=== PATIENT | female | born 1930 | race Caucasian/White ===

== ENCOUNTER → 2019-04-03 | Outpatient (CLI) | payer MEDICARE, OTHER, MEDICAID ==
--- NOTE | 2019-04-03 10:07 | Diagnostic Imaging Report ---
INDICATION: Right wrist pain Four views of the right wrist show no fracture, dislocation or other acute abnormalities. There is some joint space narrowing at the first carpometacarpal joint and some calcification in the triangular fibrocartilage consistent with degenerative change. IMPRESSION: Degenerative changes. No acute abnormality seen. Dictated by: Dictated on workstation # [id number]
== END ==
LOC: RAD FS 09:22
PROVIDERS: ATTEND Family Medicine
DX: M19.031 Primary osteoarthritis, right wrist (principal)
CPT/HCPCS: 73110

== ENCOUNTER 2019-09-13 18:26 | Inpatient (IN) | payer MEDICARE, MEDICAID ==
[~2019-09-13] VITALS: Ht 152.6 cm; Wt 58.2 kg
[2019-09-13 18:39] LABS: BASOPHILS # (AUTO) 0.1 10^3/uL (0.0-0.1); BASOPHILS % (AUTO) 1 % (0-10); EOSINOPHILS # (AUTO) 0.2 10^3/uL (0.0-0.3); EOSINOPHILS % (AUTO) 2 % (0-10); HEMATOCRIT 31 % (35-52); HEMOGLOBIN 8.8 G/DL (11.5-16.0); LYMPHOCYTES # (AUTO) 1.6 X 10^3 (1.0-4.0); LYMPHOCYTES % (AUTO) 20 % (12-44); MEAN CORPUSCULAR HEMOGLOBIN 22 PG (25-34); MEAN CORPUSCULAR HGB CONC 28 G/DL (32-36); MEAN CORPUSCULAR VOLUME 79 FL (80-99); MEAN PLATELET VOLUME 10.9 FL (7.4-10.4); MONOCYTES # (AUTO) 0.7 X 10^3 (0.0-1.0); MONOCYTES % (AUTO) 9 % (0-12); NEUTROPHILS # (AUTO) 5.3 X 10^3 (1.8-7.8); NEUTROPHILS % (AUTO) 67 % (42-75); PLATELET COUNT 300 10^3/uL (130-400); WHITE BLOOD COUNT 7.9 10^3/uL (4.3-11.0)
[2019-09-13 19:01] LABS: CLARITY,URINE CLOUDY; COLOR,URINE YELLOW
[2019-09-13 19:01] LABS: INR 1.2 (0.8-1.4); PROTHROMBIN TIME PATIENT 15.8 SEC (12.2-14.7)
[2019-09-13 19:02] LABS: BACTERIA,URINE LARGE /HPF; BILIRUBIN,URINE NEGATIVE (NEGATIVE); GLUCOSE, URINE (UA) NEGATIVE (NEGATIVE); KETONES,URINE NEGATIVE (NEGATIVE); LEUKOCYTE ESTERASE ,URINE 3+ (NEGATIVE); NITRITE,URINE NEGATIVE (NEGATIVE); PROTEIN,URINE NEGATIVE (NEGATIVE); WBC,URINE TNTC /HPF
[2019-09-13 19:04] LABS: BILIRUBIN,TOTAL 0.2 MG/DL (0.1-1.0); CALCIUM 9.5 MG/DL (8.5-10.1); CREATININE SERUM 1.06 MG/DL (0.60-1.30); POTASSIUM 4.2 MMOL/L (3.6-5.0)
[2019-09-13] MEDS ORDERED: NS IV 500 ML 500 ML IV STA (19:04)
[2019-09-13 19:05] LABS: ALBUMIN 3.3 GM/DL (3.2-4.5); TOTAL PROTEIN 6.3 GM/DL (6.4-8.2)
--- NOTE | 2019-09-13 19:09 | ED Syncope ---
General Chief Complaint: Dizziness/Syncope Stated Complaint: SYNCOPE Nursing Triage Note: Patient is a resident of [facility], per EMS and E staff, patient was sitting on the commode when she had a syncopal episode. EMS also reports blood pressures 70s/40s. Source of Information: Patient, EMS History of Present Illness Date Seen by Provider: Sep 13, 2019 Time Seen by Provider: 18:26 Initial Comments 89-year-old female presenting from [facility] by EMS after having a syncopal episode while on the commode. She does have a history of hypertension and heart failure as well as dementia. She takes several blood pressure medications and a diuretic. She denies having any pain or discomfort with urin ation but has dementia. She had not been complaining of anything to the alf staff for her to the family. Initially her blood pressure for the alf staff was in the 70s systolic range. She refused an IV stick by EMS and her blood pressure was over 100 systolic for them so they deferred an IV stick until she came to the emergency department. She was having some dry heaves and belching when she arrived in the emergency department. She denied any diarrhea and did not have any actual vomiting. She denied having any pain anywhere. Allergies and Home Medications Allergies Coded Allergies: Penicillins (Verified Allergy, Unknown, 09/13/19) cephalexin (Verified Allergy, Unknown, 09/13/19) procaine (Verified Allergy, Unknown, 09/13/19) Patient Home Medication List Home Medication List Reviewed: Yes Review of Systems ROS-Unable to Obtain: patient has dementia so she gave limited review of systems Constitutional: No chills, No fever EENTM: no symptoms reported Respiratory: no symptoms reported Cardiovascular: No chest pain Gastrointestinal: No abdominal pain, No nausea, No vomiting Genitourinary: No dysuria Musculoskeletal: no symptoms reported Skin: no symptoms reported Psychiatric/Neurological: Other (syncopal episode while on the commode at the alf) Past Vaykppq-Pbzhme-Gqobhk Hx Past Med/Social Hx: Reviewed Nursing Past Med/Soc Hx Patient Social History Recent Foreign Travel: No Contact w/Someone Who Travel: No Recent Infectious Disease Expo: No Physical Abuse: No Sexual Abuse: No Mistreated: No Fear: No Past Medical History Cardiac: Yes (heart failure) Hypertension Dementia Physical Exam Vital Signs Vital Signs - First Documented 09/13/19 18:30 Temp 36.5 Pulse 63 Resp 13 B/P (MAP) 110/45 (66) Pulse Ox 94 O2 Delivery Room Air Capillary Refill : Less Than 3 Seconds Height, Weight, BMI Height: '" Weight: lbs. oz. kg; 22.00 BMI Method: General Appearance: No Apparent Distress, WD/WN HEENT: No Moist Mucous Membranes (slightly dry mucous membranes) Neck: Non Tender, Supple Cardiovascular: Regular Rate, Rhythm, Normal Peripheral Pulses, Other (distant heart sounds) Respiratory: Chest Non Tender, Lungs Clear, Normal Breath Sounds, No Accessory Muscle Use, No Respiratory Distress Gastrointestinal: Normal Bowel Sounds, No Pulsatile Mass, Non Tender, Soft Extremities: Normal Capillary Refill, Non Tender Neurologic/Psychiatric: Alert; No Oriented x3 (oriented to self and location) Cranial Nerves: Normal Speech, PERRL, Hearing Deficit (L), Hearing Deficit (R) Skin: Normal Color, Warm/Dry Focused Exam Lactate Level 09/13/19 19:25: Lactic Acid Level 1.84 Lactic Acid Level Laboratory Tests Test 09/13/19 19:25 Lactic Acid Level 1.84 MMOL/L (0.50-2.00) Progress/Results/Core Measures Results/Orders Lab Results Laboratory Tests Test 09/13/19 18:30 09/13/19 18:48 09/13/19 19:25 Range/Units White Blood Count 7.9 4.3-11.0 10^3/uL Red Blood Count 3.93 L 4.35-5.85 10^6/uL Hemoglobin 8.8 L 11.5-16.0 G/DL Hematocrit 31 L 35-52 % Mean Corpuscular Volume 79 L 80-99 FL Mean Corpuscular Hemoglobin 22 L 25-34 PG Mean Corpuscular Hemoglobin Concent 28 L 32-36 G/DL Red Cell Distribution Width 18.0 H 10.0-14.5 % Platelet Count 300 130-400 10^3/uL Mean Platelet Volume 10.9 H 7.4-10.4 FL Neutrophils (%) (Auto) 67 42-75 % Lymphocytes (%) (Auto) 20 12-44 % Monocytes (%) (Auto) 9 0-12 % Eosinophils (%) (Auto) 2 0-10 % Basophils (%) (Auto) 1 0-10 % Neutrophils # (Auto) 5.3 1.8-7.8 X 10^3 Lymphocytes # (Auto) 1.6 1.0-4.0 X 10^3 Monocytes # (Auto) 0.7 0.0-1.0 X 10^3 Eosinophils # (Auto) 0.2 0.0-0.3 10^3/uL Basophils # (Auto) 0.1 0.0-0.1 10^3/uL Prothrombin Time 15.8 H 12.2-14.7 SEC INR Comment 1.2 0.8-1.4 Activated Partial Thromboplast Time 33 24-35 SEC Sodium Level 141 135-145 MMOL/L Potassium Level 4.2 3.6-5.0 MMOL/L Chloride Level 106 98-107 MMOL/L Carbon Dioxide Level 25 21-32 MMOL/L Anion Gap 10 5-14 MMOL/L Blood Urea Nitrogen 17 7-18 MG/DL Creatinine 1.06 0.60-1.30 MG/DL Estimat Glomerular Filtration Rate 49 BUN/Creatinine Ratio 16 Glucose Level 139 H 70-105 MG/DL Calcium Level 9.5 8.5-10.1 MG/DL Corrected Calcium 10.1 8.5-10.1 MG/DL Magnesium Level 2.0 1.6-2.4 MG/DL Total Bilirubin 0.2 0.1-1.0 MG/DL Aspartate Amino Transf (AST/SGOT) 12 5-34 U/L Alanine Aminotransferase (ALT/SGPT) 5 0-55 U/L Alkaline Phosphatase 65 40-136 U/L Troponin I < 0.30 <0.30 NG/ML Pro-B-Type Natriuretic Peptide 1818.0 H <75.0 PG/ML Total Protein 6.3 L 6.4-8.2 GM/DL Albumin 3.3 3.2-4.5 GM/DL Urine Color YELLOW Urine Clarity CLOUDY Urine pH 6.0 5-9 Urine Specific [place] 1.020 1.016-1.022 Urine Protein NEGATIVE NEGATIVE Urine Glucose (UA) NEGATIVE NEGATIVE Urine Ketones NEGATIVE NEGATIVE Urine Nitrite NEGATIVE NEGATIVE Urine Bilirubin NEGATIVE NEGATIVE Urine Urobilinogen 0.2 < = 1.0 MG/DL Urine Leukocyte Esterase 3+ H NEGATIVE Urine RBC (Auto) 1+ H NEGATIVE Urine RBC 5-10 H /HPF Urine WBC TNTC H /HPF Urine Squamous Epithelial Cells 2-5 /HPF Urine Crystals NONE /LPF Urine Calcium Oxalate Crystals /LPF Urine Bacteria LARGE H /HPF Urine Casts NONE /LPF Urine Mucus NEGATIVE /LPF Urine Culture Indicated YES Lactic Acid Level 1.84 0.50-2.00 MMOL/L My Orders Orders - SHIVA ACEVEDO MD Cbc With Automated Diff (09/13/19 18:31) Magnesium (09/13/19 18:31) Chest 1 View Ap/Pa Only (09/13/19 18:31) Ekg Tracing (09/13/19 18:31) Comprehensive Metabolic Panel (09/13/19 18:31) Protime With Inr (09/13/19 18:31) Partial Thromboplastin Time (09/13/19 18:31) O2 (09/13/19 18:31) Monitor-Rhythm Ecg Trace Only (09/13/19 18:31) Ed Iv/Invasive Line Start (09/13/19 18:31) Troponin I Fs (09/13/19 18:31) Probnp Fs (09/13/19 18:31) Ua Culture If Indicated (09/13/19 18:32) Straight Cath For Spec.-Adult (09/13/19 18:34) Urine Culture (09/13/19 18:48) Ns Iv 500 Ml (Sodium Chloride 0.9%) (09/13/19 19:04) Ciprofloxacin Iv 400mg/200ml (Cipro Iv S (09/13/19 19:15) Blood Culture (09/13/19 19:21) Lactic Acid Analyzer (09/13/19 19:21) Medications Given in ED Current Medications Medications Dose Ordered Sig/Yossi Route Start Time Stop Time Status Last Admin Dose Admin Ciprofloxacin/ Dextrose 200 ml @ 200 mls/hr ONCE ONCE IV 09/13/19 19:15 09/13/19 20:14 DC 09/13/19 19:19 200 MLS/HR Vital Signs/I&O 09/13/19 18:30 Temp 36.5 Pulse 63 Resp 13 B/P (MAP) 110/45 (66) Pulse Ox 94 O2 Delivery Room Air Blood Pressure Mean: 66 POS Progress Progress Note #1: Progress Note Obtain basic labs as well as electrocardiogram and chest x-ray. Use a straight catheter to get a good urine specimen to check for a UTI and a obtain a evaluation of her hydration status. Give a 500 ML normal saline bolus to help with her hypotension. Progress Note #2: Progress Note No acute ST elevation on her electrocardiogram. She has a left bundle-branch block but no prior tracing for comparison. Her chest x-ray does not show any acute findings. Her urinalysis does show signs of an infection with packed bacteria and white blood cells. There was some blood but this was also from a catheter specimen. Her blood pressures have continued to run low and she is fluctuated from 85-95 for her systolic pressures. She is continued to remain awake and alert and interactive with family and staff during this entire time. Her CBC shows no elevation of her white blood cell count but she does have anemia with a hemoglobin of 8.8 which the family states she does have chronic anemia however they could not state what her hemoglobin usually runs. With the hypotension and findings of UTI will add on blood cultures and lactic acid to ensure that she is not septic. Provided this looks okay will start ciprofloxacin since she is allergic to penicillin and cephalosporins. Progress Note #3: Progress Note Lactic acid was 1.8 so she does not appear to be septic. Her blood pressure was responding to the IV fluid bolus. Discussed with Dr. Kaplan who is on-call for the [facility] clinic as the patient follows with Dr. Humphries and she accepted the patient for admission. She did request a consult from cardiology with Dr. Solitario. Continue the IV fluids at a maintenance rate and admit the patient to telemetry. She is a DO NOT RESUSCITATE according to the daughter. Initial ECG Impression Date: Sep 13, 2019 Initial ECG Impression Time: 18:58 Initial ECG Rate: 59 Initial ECG Rhythm: Normal Sinus Initial ECG Comparisson: No Previous ECG Available Comment Sinus rhythm with rate of 59 bpm. AK interval of 153 ms. QT interval of 381 ms and QTc interval of 378 ms. LBBB present. No acute ST elevation. No prior tracing available for comparison. Diagnostic Imaging Diagonstic Imaging: Xray Plain Films/CT/US/NM/MRI: chest Comments NAME: JOSEPH DENG [facility] REC#: [id number] PT STATUS: REG ER : 1930 PHYSICIAN: SHIVA ACEVEDO MD ADMIT DATE: 09/13/19/ER FS Signed POSDate of Exam:09/13/19 CHEST 1 VIEW AP/PA ONLY INDICATION: Syncope Portable chest 7:08 PM There is a hiatal hernia. There are postoperative changes from median sternotomy. Heart size and pulmonary vascularity are normal. Lungs are clear. There are no effusions or pneumothoraces. IMPRESSION: No acute abnormalities in the chest Dictated by: Dictated on workstation # [id number] Dict: 09/13/191911 Trans: 09/13/191920 [facility] [id number] Interpreted by: FLORENCIA CARPENTER MD Electronically signed by: FLORENCIA CARPENTER MD 09/13/191920 Departure Communication (Admissions) Time/Spoke to Admitting Phy: 19:[address] Kaplan who is on for [facility] since the patient follows with Dr. Humphries. She accepted the patient for admission and did request to have her as an inpatient and consult the cardiology services with Dr. Solitario due to her age and syncopal episode with hypotension Impression Primary Impression: Syncope Qualified Codes: R55 - Syncope and collapse Additional Impressions: Cystitis with hematuria Hypotension Qualified Codes: I95.1 - Orthostatic hypotension Anemia Qualified Codes: D64.9 - Anemia, unspecified Disposition: 09 ADMITTED INPATIENT Condition: Stable Admissions Decision to Admit Reason: Admit from ER (General) Decision to Admit/Date: Sep 13, 2019 Time/Decision to Admit Time: 19:49 SHIVA ACEVEDO MD Sep 13, 2019 19:09 POS
--- NOTE | 2019-09-13 19:14 | Diagnostic Imaging Report ---
INDICATION: Syncope Portable chest 7:08 PM There is a hiatal hernia. There are postoperative changes from median sternotomy. Heart size and pulmonary vascularity are normal. Lungs are clear. There are no effusions or pneumothoraces. IMPRESSION: No acute abnormalities in the chest Dictated by: Dictated on workstation # [id number]
[2019-09-13] MEDS ORDERED: CIPROFLOXACIN IV 400MG/200ML 200 ML IV ONE (19:15)
--- NOTE | 2019-09-13 20:00 | NUR ---
This RN contacted warehouse logistics coordinator for a medsur bed.
--- NOTE | 2019-09-13 20:19 | NUR ---
Called dispatch for EMS transport to [facility].
[2019-09-13 21:37] VITALS: BP 88/49
[2019-09-13] MEDS ORDERED: ACETAMINOPHEN 325 MG TABLET PO PRN (22:00)
[2019-09-13] MEDS ORDERED: NS IV 1000 ML 1,000 ML IV SCH (22:00)
[2019-09-13] MEDS ORDERED: ENOXAPARIN 40 MG/0.4 ML (LOVENOX) SYR SC SCH (22:15)
[2019-09-13] MEDS ORDERED: ACETAMINOPHEN 500 MG TAB (TYLENOL) PO PRN (22:15)
[2019-09-13] MEDS ORDERED: HYDROcodone/APAP 5 MG/325 MG (LORTAB) TAB PO PRN (22:15)
[2019-09-13] MEDS ORDERED: CALCIUM CARBONATE 500 MG (TUMS) TAB.CHEW PO PRN (22:15)
[2019-09-13] MEDS ORDERED: diphenhydrAMINE 25 MG TAB (BENADRYL) PO PRN (22:15)
[2019-09-13] MEDS ORDERED: MELATONIN 3 MG TABLET PO PRN (22:15)
[2019-09-13] MEDS ORDERED: ALPRAZolam 0.25 MG (XANAX) TAB PO PRN (22:15)
[2019-09-13] MEDS ORDERED: ONDANSETRON 4 MG (ZOFRAN) ORAL DISSOLVE TAB PO PRN (22:15)
[2019-09-13] MEDS ORDERED: guaiFENesin/CODEINE (ROBITUSSIN AC) 10ML UDC PO PRN (22:15)
[2019-09-13] MEDS ORDERED: LOPERAMIDE 2 MG (IMODIUM) TABLET PO PRN (22:15)
[2019-09-13] MEDS ORDERED: DOCUSATE SODIUM 100 MG (COLACE) CAP PO PRN (22:15)
[2019-09-13] MEDS ORDERED: ONDANSETRON 4 MG/2 ML (SDV) Z0FRAN IVP PRN (22:15)
[2019-09-13 23:02] LABS: BASOPHILS % (AUTO) 0 % (0-10); EOSINOPHILS % (AUTO) 1 % (0-10); HEMATOCRIT 29 % (35-52); HEMOGLOBIN 8.4 G/DL (11.5-16.0); LYMPHOCYTES # (AUTO) 0.9 X 10^3 (1.0-4.0); LYMPHOCYTES % (AUTO) 13 % (12-44); MEAN CORPUSCULAR HEMOGLOBIN 23 PG (25-34); MEAN CORPUSCULAR HGB CONC 29 G/DL (32-36); MEAN CORPUSCULAR VOLUME 78 FL (80-99); MONOCYTES # (AUTO) 0.4 X 10^3 (0.0-1.0); MONOCYTES % (AUTO) 5 % (0-12); NEUTROPHILS # (AUTO) 5.9 X 10^3 (1.8-7.8); NEUTROPHILS % (AUTO) 82 % (42-75); PLATELET COUNT 263 10^3/uL (130-400); RED CELL DISTRIBUTION WIDTH 18.2 % (10.0-14.5); WHITE BLOOD COUNT 7.3 10^3/uL (4.3-11.0)
[2019-09-13 23:26] LABS: ALANINE AMINOTRANSFERASE < 6 U/L (0-55); ALBUMIN 3.2 GM/DL (3.2-4.5); ALKALINE PHOSPHATASE 60 U/L (40-136); BILIRUBIN,TOTAL 0.2 MG/DL (0.1-1.0); BUN/CREATININE RATIO 16; CALCIUM 9.1 MG/DL (8.5-10.1); CARBON DIOXIDE 23 MMOL/L (21-32); CHLORIDE 107 MMOL/L (98-107); CREATININE SERUM 0.99 MG/DL (0.60-1.30); GFR ESTIMATED 53; GLUCOSE 112 MG/DL (70-105); POTASSIUM 4.1 MMOL/L (3.6-5.0); SODIUM 139 MMOL/L (135-145); TOTAL PROTEIN 5.8 GM/DL (6.4-8.2)
[2019-09-14 00:25] VITALS: BP 101/53
[2019-09-14 04:00] VITALS: BP 98/51
[2019-09-14] MEDS ORDERED: CIPROFLOXACIN 400 MG/D5W 200 ML (PRE-MIX) IV SCH (07:00)
[2019-09-14 08:00] VITALS: BP 101/57
[2019-09-14] MEDS ORDERED: MEMA10TA57 PO (08:42)
[2019-09-14] MEDS ORDERED: NITR0.4T39 SL (08:43)
[2019-09-14] MEDS ORDERED: POLY238P32 PO (08:43)
[2019-09-14] MEDS ORDERED: HYDR-3812 PO ×2 (08:43)
[2019-09-14] MEDS ORDERED: CITA20TA9 PO (08:43)
[2019-09-14] MEDS ORDERED: LISI2.5T PO (08:43)
[2019-09-14] MEDS ORDERED: LORA10TA76 PO (08:43)
[2019-09-14] MEDS ORDERED: APIX5TAB PO (08:43)
[2019-09-14] MEDS ORDERED: OMG1KC PO (08:43)
[2019-09-14] MEDS ORDERED: FURO40TA4 PO (08:43)
[2019-09-14] MEDS ORDERED: OMEP40CA27 PO (08:43)
[2019-09-14] MEDS ORDERED: MENT71OI TOP (08:43)
[2019-09-14] MEDS ORDERED: CARV3.122 PO (08:43)
[2019-09-14] MEDS ORDERED: DONE10TA41 PO (08:43)
[2019-09-14] MEDS ORDERED: BENZ100C18 PO (08:43)
[2019-09-14] MEDS ORDERED: POTA20TA15 PO (08:43)
[2019-09-14] MEDS ORDERED: GLUC-113 PO (08:43)
[2019-09-14] MEDS ORDERED: TIZA2TAB4 PO (08:43)
[2019-09-14] MEDS ORDERED: ASCO500T6 PO (08:45)
--- NOTE | 2019-09-14 08:45 | NUR ---
UPDATED MED REC WITH MEDICATION PHARMACY ORDERS FROM [facility].
[2019-09-14] MEDS ORDERED: CIPROFLOXACIN IV 400MG/200ML 200 ML IV SCH (09:00)
[2019-09-14] MEDS ORDERED: SENNA W/DOCUSATE (SENOKOT S) TABLET PO SCH (09:00)
--- NOTE | 2019-09-14 10:51 | Consultation-Cardiology ---
HPI-Cardiology Cardiology Consultation Date of Consultation 09/14/19 Date of Admission Time Seen by Provider: 10:46 Indication: syncope HPI 89-year-old lady with extensive cardiac history, patient is confused and unable to provide any history, history was obtained by reviewing her record and with interviewing her daughter. It was reported that patient passed out on the commode at the shelter, sent to the emergency room and admitted. Unable to provide any history, reporting history of coronary artery disease and CABG and questionable history of heart failure. Currently laying down comfortably, had multiple aches and pain. No chest pain. No palpitation, no shortness of breath, no edema Home Medications & Allergies Allergies: Coded Allergies: Penicillins (Verified Allergy, Unknown, 09/13/19) cephalexin (Verified Allergy, Unknown, 09/13/19) procaine (Verified Allergy, Unknown, 09/13/19) Home Medication List Reviewed: Yes JAI-Mzrqrb-Rjyuxp Hx Patient Social History Marital Status: Employed/Student: retired Alcohol Use: Denies Use Recreational Drug Use: No Smoking Status: Never a Smoker 2nd Hand Smoke Exposure: No Recent Foreign Travel: No Recent Infectious Disease Expo: No Recent Hopitalizations: No Immunizations Up To Date Date of Pneumonia Vaccine: Sep 13, 2018 Past Medical History discussed below Family Medical History Family Medical Hx noncontributory to her current condition Review of Systems-General Review of Systems Constitutional: No chills, No fever; malaise, weakness EENTM: see HPI, no symptoms reported Respiratory: see HPI; No cough; dyspnea on exertion; No hemoptysis, No orthopnea, No phlegm, No short of breath, No stridor, No wheezing, No other Cardiovascular: see HPI; No chest pain; syncope Gastrointestinal: no symptoms reported, see HPI; No abdominal pain, No nausea, No vomiting Genitourinary: no symptoms reported, see HPI; No dysuria Musculoskeletal: see HPI, back pain, joint pain, muscle stiffness, muscle weakness Skin: no symptoms reported, see HPI Psychiatric/Neurological: See HPI, Other (syncopal episode while on the commode at the shelter) Reviewed Test Results Reviewed Test Results Lab Laboratory Tests Test 09/13/19 18:30 09/13/19 18:48 09/13/19 19:25 09/13/19 22:50 Range/Units White Blood Count 7.9 7.3 4.3-11.0 10^3/uL Red Blood Count 3.93 L 3.70 L 4.35-5.85 10^6/uL Hemoglobin 8.8 L 8.4 L 11.5-16.0 G/DL Hematocrit 31 L 29 L 35-52 % Mean Corpuscular Volume 79 L 78 L 80-99 FL Mean Corpuscular Hemoglobin 22 L 23 L 25-34 PG Mean Corpuscular Hemoglobin Concent 28 L 29 L 32-36 G/DL Red Cell Distribution Width 18.0 H 18.2 H 10.0-14.5 % Platelet Count 300 263 130-400 10^3/uL Mean Platelet Volume 10.9 H 11.0 H 7.4-10.4 FL Neutrophils (%) (Auto) 67 82 H 42-75 % Lymphocytes (%) (Auto) 20 13 12-44 % Monocytes (%) (Auto) 9 5 0-12 % Eosinophils (%) (Auto) 2 1 0-10 % Basophils (%) (Auto) 1 0 0-10 % Neutrophils # (Auto) 5.3 5.9 1.8-7.8 X 10^3 Lymphocytes # (Auto) 1.6 0.9 L 1.0-4.0 X 10^3 Monocytes # (Auto) 0.7 0.4 0.0-1.0 X 10^3 Eosinophils # (Auto) 0.2 0.0 0.0-0.3 10^3/uL Basophils # (Auto) 0.1 0.0 0.0-0.1 10^3/uL Prothrombin Time 15.8 H 12.2-14.7 SEC INR Comment 1.2 0.8-1.4 Activated Partial Thromboplast Time 33 24-35 SEC Sodium Level 141 139 135-145 MMOL/L Potassium Level 4.2 4.1 3.6-5.0 MMOL/L Chloride Level 106 107 98-107 MMOL/L Carbon Dioxide Level 25 23 21-32 MMOL/L Anion Gap 10 9 5-14 MMOL/L Blood Urea Nitrogen 17 16 7-18 MG/DL Creatinine 1.06 0.99 0.60-1.30 MG/DL Estimat Glomerular Filtration Rate 49 53 BUN/Creatinine Ratio 16 16 Glucose Level 139 H 112 H 70-105 MG/DL Calcium Level 9.5 9.1 8.5-10.1 MG/DL Corrected Calcium 10.1 9.7 8.5-10.1 MG/DL Magnesium Level 2.0 1.6-2.4 MG/DL Total Bilirubin 0.2 0.2 0.1-1.0 MG/DL Aspartate Amino Transf (AST/SGOT) 12 11 5-34 U/L Alanine Aminotransferase (ALT/SGPT) 5 < 6 0-55 U/L Alkaline Phosphatase 65 60 40-136 U/L Troponin I < 0.30 <0.30 NG/ML Pro-B-Type Natriuretic Peptide 1818.0 H <75.0 PG/ML Total Protein 6.3 L 5.8 L 6.4-8.2 GM/DL Albumin 3.3 3.2 3.2-4.5 GM/DL Urine Color YELLOW Urine Clarity CLOUDY Urine pH 6.0 5-9 Urine Specific [place] 1.020 1.016-1.022 Urine Protein NEGATIVE NEGATIVE Urine Glucose (UA) NEGATIVE NEGATIVE Urine Ketones NEGATIVE NEGATIVE Urine Nitrite NEGATIVE NEGATIVE Urine Bilirubin NEGATIVE NEGATIVE Urine Urobilinogen 0.2 < = 1.0 MG/DL Urine Leukocyte Esterase 3+ H NEGATIVE Urine RBC (Auto) 1+ H NEGATIVE Urine RBC 5-10 H /HPF Urine WBC TNTC H /HPF Urine Squamous Epithelial Cells 2-5 /HPF Urine Crystals NONE /LPF Urine Calcium Oxalate Crystals /LPF Urine Bacteria LARGE H /HPF Urine Casts NONE /LPF Urine Mucus NEGATIVE /LPF Urine Culture Indicated YES Lactic Acid Level 1.84 0.50-2.00 MMOL/L Physical Exam Physical Exam Vital Signs Vital Signs - First Documented 09/13/19 18:30 Temp 36.5 Pulse 63 Resp 13 B/P (MAP) 110/45 (66) Pulse Ox 94 O2 Delivery Room Air Capillary Refill : Less Than 3 SecondsLess Than 3 Seconds Height, Weight, BMI Height: '" Weight: lbs. oz. kg; 24.99 BMI Method: General Appearance: No Apparent Distress, WD/WN HEENT: No Moist Mucous Membranes (slightly dry mucous membranes) Neck: Non Tender, Supple Respiratory: Chest Non Tender, Lungs Clear, Normal Breath Sounds, No Accessory Muscle Use, No Respiratory Distress Cardiovascular: Regular Rate, Rhythm, Normal Peripheral Pulses, Systolic Murmur, Other (distant heart sounds) Gastrointestinal: Normal Bowel Sounds, No Pulsatile Mass, Non Tender, Soft Extremity: Normal Capillary Refill, Non Tender Neurologic/Psychiatric: Alert; No Oriented x3 (oriented to self and location) Skin: Normal Color, Warm/Dry A/P-Cardiology Admission Diagnosis Syncope Coronary artery disease Anemia Congestive heart failure Assessment/Plan Syncope, probably hypotensive episode, patient is maintained on multiple blood pressure medication and diuretics, I will hold Lasix at this time and restart Coreg and JEFF inhibitor, evaluate 2-D echo and monitor Coronary artery disease, history of CABG in the remote past, following with a vacuum pan tender in [facility], no recent workup was done. Continue to monitor Questionable history of congestive heart failure, evaluate 2-D echocardiogram Hypotension, monitor blood pressure, restart Coreg and JEFF inhibitor and monitor Anemia, monitor H&H, restart PPI Hyperlipidemia, monitor lipids Dementia, patient is confused, chronic issue. Chronic back and joint pain, had hip replacement surgery in the past, multiple surgeries. Clinical Quality Measures DVT/VTE Risk/Contraindication: Risk Factor Score Per Nursin RFS Level Per Nursing on Admit: 4+=Very High KYE ARREOLA MD Sep 14, 2019 10:51 POS
[2019-09-14 12:00] VITALS: BP 113/64
[2019-09-14] MEDS ORDERED: CIPR250T3 PO (12:38)
--- NOTE | 2019-09-14 12:39 | Short Stay Summary-Hospitalist ---
History of Present Illness HPI/Chief Complaint CC: Syncope with UTI HPI: This is an 89yoWF clinic Pt of Dr. Kristel JONES who resides and [facility] assisted living who presents to the [facility] with syncope, due to dementia and severe [id number] no other details were obtained. Pt was found to have a UTI, allergies to medications required placement of Fluoroquinolone and cardiology was consulted ho reviewed previous records and evaluated pt to have no cardiac cause of syncope and Pt was discharged back to assisted living. Pt's sever hard of hearing and dementia precludes any details from the Pt or given to the Pt. Family at the bedside. Source: patient Date Seen 09/14/19 Time Seen by a Provider: 11:30 Attending Physician Lakisha Kaplan Pankaj K MD Referring Physician Date of Admission Sep 13, 2019 at 19:49 Home Medications & Allergies Home Medications Reviewed patient Home Medication Reconciliation performed by pharmacy medication reconciliations electron beam photo mask technician and/or nursing. Patients Allergies have been reviewed. Allergies Allergies Coded Allergies Penicillins (Verified Allergy, Unknown, 09/13/19) cephalexin (Verified Allergy, Unknown, 09/13/19) procaine (Verified Allergy, Unknown, 09/13/19) Past Lvkjhxv-Iaufzr-Cgnefp Hx Past Med/Social Hx: Reviewed Nursing Past Med/Soc Hx, Reviewed and Corrections made Patient Social History Marrital Status: Employed/Student: retired Alcohol Use: Denies Use Recreational Drug Use: No Smoking Status: Never a Smoker 2nd Hand Smoke Exposure: No Recent Foreign Travel: No Contact w/other who traveled: No Recent Hopitalizations: No Recent Infectious Disease Expo: No Immunizations Up To Date Date of Pneumonia Vaccine: Sep 13, 2018 Seasonal Allergies Seasonal Allergies: No Past Medical History Cardiac: Hypertension Neurological: Dementia : No Genitourinary: Bladder Infection Gastrointestinal: Gastroesophageal Reflux Musculoskeletal: Chronic Back Pain Cancer: Lymphoma History of Blood Disorders: Yes (anemia) Review of Systems Constitutional: see HPI, malaise, weakness Physical Exam Physical Exam Vital Signs Vital Signs - First Documented 09/13/19 18:30 Temp 36.5 Pulse 63 Resp 13 B/P (MAP) 110/45 (66) Pulse Ox 94 O2 Delivery Room Air Capillary Refill : Less Than 3 SecondsLess Than 3 Seconds Height, Weight, BMI Height: '" Weight: lbs. oz. kg; 24.99 BMI Method: General Appearance: No Apparent Distress, WD/WN, Chronically ill HEENT: No Moist Mucous Membranes (slightly dry mucous membranes) Neck: Non Tender, Supple Respiratory: Chest Non Tender, Lungs Clear, Normal Breath Sounds, No Accessory Muscle Use, No Respiratory Distress Cardiovascular: Regular Rate, Rhythm, Normal Peripheral Pulses, Systolic Murmur, Other (distant heart sounds) Gastrointestinal: Normal Bowel Sounds, No Pulsatile Mass, Non Tender, Soft Extremity: Normal Capillary Refill, Non Tender Neurologic/Psychiatric: Alert; No Oriented x3 (oriented to self and location) Skin: Normal Color, Warm/Dry Results Results/Procedures Labs Laboratory Tests 09/13/19 18:30 09/13/19 22:50 Patient resulted labs reviewed. Short Stay Diagnosis Discharge Diagnosis-Short Stay Admission Diagnosis Assessment: Syncope UTI Dementia Presbycusis Final Discharge Diagnosis Assessment: Syncope UTI Dementia Presbycusis Conclusion Plan Discharge home Antibiotic selection based on allergy list Diagnosis/Problems Diagnosis/Problems (1) Syncope Status: Acute Qualifiers: Qualified Codes: R55 - Syncope and collapse (2) Dementia (3) Presbycusis (4) Cystitis with hematuria Status: Acute (5) Hypotension Status: Acute Qualifiers: Qualified Codes: I95.1 - Orthostatic hypotension (6) Anemia Status: Acute Qualifiers: Qualified Codes: D64.9 - Anemia, unspecified Clinical Quality Measures DVT/VTE Risk/Contraindication: Risk Factor Score Per Nursin RFS Level Per Nursing on Admit: 4+=Very High LAKISHA KAPLAN DO Sep 14, 2019 12:39 POS
--- NOTE | 2019-09-14 12:42 | NUR ---
DR CASTRO PUT IN DISCHARGE ORDERS IF OK WITH DR ARREOLA
[2019-09-14 14:10] VITALS: BP 113/64
[2019-09-14] MEDS ORDERED: CARVEDILOL 3.125 MG (COREG) TABLET PO SCH (17:00)
[2019-09-14] MEDS ORDERED: NON-FORMULARY MEDICATION 1 EA EA (Carvedilol 3.125 MG) PO SCH (17:00)
[2019-09-14] MEDS ORDERED: APIXABAN 5 MG (ELIQUIS) TABLET PO SCH (17:00)
[2019-09-14] MEDS ORDERED: ENOXAPARIN 30 MG/0.3 ML (LOVENOX) SYR SC SCH (22:00)
[2019-09-15] MEDS ORDERED: CIPROFLOXACIN 400 MG/D5W 200 ML (PRE-MIX) IV SCH (07:00)
[2019-09-15] MEDS ORDERED: NON-FORMULARY MEDICATION 1 EA EA (Lisinopril 2.5 MG) PO SCH (09:00)
[2019-09-15] MEDS ORDERED: lisINopril 5 MG (PRINIVIL) TABLET PO SCH (09:00)
[2019-09-15] MEDS ORDERED: NON-FORMULARY MEDICATION 1 EA EA (Omeprazole 40 MG) PO SCH (09:00)
[2019-09-15] MEDS ORDERED: PANTOPRAZOLE 40 MG (PROTONIX) TAB PO SCH (09:00)
--- OUTSIDE RECORDS SUMMARY | 2019-10-10 02:49 | XMS REPORT | Continuity of Care Document ---
Author Organization Unknown Address Unknown Phone Unavailable Allergies Active Description Code Type Severity Reaction Onset Reported/Identified Relationship to Patient Clinical Status Yes cephalexin [id number] Drug Allerg y Unknown N/A 09/13/2019 Yes Penicillins [id number] Drug Aller gy Unknown N/A 09/13/2019 Yes procaine [id number] Drug Allergy Unknown N/A 09/13/2019 Medications There is no data. Problems Date Dx Coded Attending Type Code Diagnosis Diagnosed By 09/14/2019 TONG CASTRO DO Ot D64.9 ANEMIA, UNSPECIFIED 09/14/2019 GLORIA ALLAN TONG Ot F03.90 UNSPECIFIED DEMENTIA WITHOUT BEHAVIORAL 09/14/2019 SHANEKA CASTRO DOI Ot G89.29 OTHER CHRONIC PAIN 09/14/2019 GLORIA ALLAN TONG Ot H91.10 PRESBYCUSIS, UNSPECIFIED EAR 09/14/2019 GLORIA ALLAN TONG Ot H91.90 UNSPECIFIED HEARING LOSS, UNSPECIFIED EA 09/14/2019 GLORIA ALLAN TONG Ot I11.0 HYPERTENSIVE HEART DISEASE WITH HEART FA 09/14/2019 GLORIA ALLAN TONG Ot I25.10 ATHSCL HEART DISEASE OF [place] CORONARY 09/14/2019 GLORIA ALLAN TONG Ot I50.9 HEART FAILURE, UNSPECIFIED 09/14/2019 GLORIA ALLAN TONG Ot I95.9 HYPOTENSION, UNSPECIFIED 09/14/2019 GLORIA ALLAN TONG Ot K21.9 GASTRO-ESOPHAGEAL REFLUX DISEASE WITHOUT 09/14/2019 GLORIA ALLAN TONG Ot M54.9 DORSALGIA, UNSPECIFIED 09/14/2019 GLORIA ALLAN TONG Ot N39.0 URINARY TRACT INFECTION, SITE NOT SPECIF 09/14/2019 GLORIA ALLAN TONG Ot 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 Results Test Result Range Complete blood count (CBC) with automate d white blood cell (WBC) differential - 09/13/19 18:30 Blood leukocytes automated count (number/volume) 7.9 10*3/uL 4.3-11.0 Blood erythrocytes automated count (number/volume) 3.93 10*6/uL 4.35-5.85 Venous blood hemoglobin measurement (mass/volume) 8.8 g/dL 11.5-16.0 Blood hematocrit (volume fraction) 31 % 35-52 Automated erythrocyte mean corpuscular volume 79 [ foz_us] 80-99 Automated erythrocyte mean corpuscular h emoglobin (mass per erythrocyte) 22 pg 25-34 Automated erythrocyte mean corpuscular h emoglobin concentration measurement (mass/volume) 28 g/dL 32-36 Automated erythrocyte distribution width ratio 18. 0 % 10.0- 14.5 Automated blood platelet count (count/volume) 300 10*3/uL 130-400 Automated blood platelet mean volume measurement 10.9 [foz_us] 7.4-10.4 Automated blood neutrophils/100 leukocytes 67 % 42-75 Automated blood lymphocytes/100 leukocytes 20 % 12-44 Blood monocytes/100 leukocytes 9 % 0-12 Automated blood eosinophils/100 leukocytes 2 % 0-10 Automated blood basophils/100 leukocytes 1 % 0-10 Blood neutrophils automated count (number/volume) 5.3 10*3 1.8-7.8 Blood lymphocytes automated count (number/volume) 1.6 10*3 1.0-4.0 Blood monocytes automated count (number/volume) 0. 7 10*3 0.0-1.0 Automated eosinophil count 0.2 10*3/uL 0 .0-0.3 Automated blood basophil count (count/volume) 0.1 10*3/uL 0.0-0.1 PT panel in platelet poor plasma by coag ulation assay - 09/13/19 18:30 Prothrombin time (PT) in platelet poor plasma by coagu lation assay 15.8 s 12.2-14.7 INR in platelet poor plasma or blood by coagulation as say 1.2 0.8-1.4 Activated partial thromboplastin time (a PTT) in platelet poor plasma bycoagulation assay - 09/13/19 18:30 Activated partial thromboplastin time (a PTT) in platelet poor plasma bycoagulation assay 33 s 24-35 TROPONIN I FS - 09/13/19 18:30 TROPONIN I FS < 0.30 <0.30 PROBNP FS - 09/13/19 18:30 PROBNP FS 1818.0 pg/mL <75.0 Comprehensive metabolic panel - 09/13/19 18:30 Serum or plasma sodium measurement (moles/volume) 141 mmol/L 135-145 Serum or plasma potassium measurement (moles/volume) 4.2 mmol/L 3.6-5.0 Serum or plasma chloride measurement (moles/volume) 106 mmol/L 98-107 Carbon dioxide 25 mmol/L 21-32 Serum or plasma anion gap determination (moles/volume) 10 mmol/L 5-14 Serum or plasma urea nitrogen measurement (mass/volume ) 17 mg/dL 7-18 Serum or plasma creatinine measurement (mass/volume) 1.06 mg/dL 0.60-1.30 Serum or plasma urea nitrogen/creatinine mass ratio 16 NRG Serum or plasma creatinine measurement w ith calculation of estimated glomerular filtration rate 49 NRG Serum or plasma glucose measurement (mass/volume) 139 mg/dL 70-105 Serum or plasma calcium measurement (mass/volume) 9.5 mg/dL 8.5-10.1 Serum or plasma total bilirubin measurement (mass/volu me) 0.2 mg/dL 0.1-1.0 Serum or plasma alkaline phosphatase derrick surement (enzymatic activity/volume) 65 U/L 40-136 Serum or plasma aspartate aminotransfera se measurement (enzymatic activity/volume) 12 U/L 5-34 Serum or plasma alanine aminotransferase measurement (enzymatic activity/volume) 5 U/L 0-55 Serum or plasma protein measurement (mass/volume) 6.3 g/dL 6.4-8.2 Serum or plasma albumin measurement (mass/volume) 3.3 g/dL 3.2-4.5 CALCIUM CORRECTED 10.1 mg/dL 8.5-10.1 Magnesium - 09/13/19 18:30 Magnesium 2.0 mg/dL 1.6-2.4 Complete urinalysis with reflex to cultu re - 09/13/19 18:48 Urine color determination YELLOW NRG Urine clarity determination CLOUDY NR G Urine pH measurement by test strip 6.0 5-9 Specific gravity of urine by test strip 1.020 1.016-1.022 Urine protein assay by test strip, semi-quantitative NEGATIVE NEGATIVE Urine glucose detection by automated test strip NE GATIVE NEGATIVE Erythrocytes detection in urine sediment by light micr oscopy 1+ NEGATIVE Urine ketones detection by automated test strip NE GATIVE NEGATIVE Urine nitrite detection by test strip NEGATIVE NEGATIVE Urine total bilirubin detection by test strip NEGA TIVE NEGATIVE Urine urobilinogen measurement by automated test strip (mass/volume) 0.2 mg/dL < = 1.0 Urine leukocyte esterase detection by dipstick 3+ NEGATIVE Automated urine sediment erythrocyte cou nt by microscopy (number/high power field) [HPF] NRG Automated urine sediment leukocyte count by microscopy (number/high power field) TNTC NRG Bacteria detection in urine sediment by light microsco py LARGE NRG Squamous epithelial cells detection in u rine sediment by light microscopy 2-5 NRG Crystals detection in urine sediment by light microsco py NONE NRG Casts detection in urine sediment by light microscopy NONE NRG Mucus detection in urine sediment by light microscopy NEGATIVE NRG Complete urinalysis with reflex to culture YES NRG Bacterial urine culture - 09/13/19 18:48 Bacterial urine culture [id number] NRG COLONY COUNT >100,000/ML NRG FTX;REPORTABLE SUSCEPTIBILITY REPORTED 09/17 11:15 NRG Dirithromycin susceptibility test by dis k diffusion - 09/13/19 18:48 Gentamicin susceptibility test by minimum inhibitory c oncentration <= NRG Trimethoprim/sulfamethoxazole susceptibi lity test by minimum inhibitoryconcentration <= NRG Levofloxacin susceptibility test by minimum inhibitory concentration <= NRG Ampicillin susceptibility test by minimum inhibitory c oncentration <= NRG Cefazolin susceptibility test by minimum inhibitory co ncentration <= NRG Ceftriaxone susceptibility test by minimum inhibitory concentration <= NRG Ciprofloxacin susceptibility test by minimum inhibitor y concentration <= NRG Meropenem susceptibility test by minimum inhibitory co ncentration <= NRG Nitrofurantoin susceptibility test by mi nimum inhibitory concentration <= NRG Amoxicillin and clavulanate potassium susc JANN <= NRG Blood lactic acid measurement (moles/vol ume) - 09/13/19 19:25 Blood lactic acid measurement (moles/volume) 1.84 mmol/L 0.50-2.00 Bacterial blood culture - 09/13/19 19:25 FREE TEXT EXTERNAL SEE COMMENTS NRG QUANTITY OF GROWTH Isolated [facility] Bacterial blood culture [id number] [facility] Bacterial blood culture - 09/13/19 19:30 Bacterial blood culture NG [facility] Complete blood count (CBC) with automate d white blood cell (WBC) differential - 09/13/19 22:50 Blood leukocytes automated count (number/volume) 7.3 10*3/uL 4.3-11.0 Blood erythrocytes automated count (number/volume) 3.70 10*6/uL 4.35-5.85 Venous blood hemoglobin measurement (mass/volume) 8.4 g/dL 11.5-16.0 Blood hematocrit (volume fraction) 29 % 35-52 Automated erythrocyte mean corpuscular volume 78 [ foz_us] 80-99 Automated erythrocyte mean corpuscular h emoglobin (mass per erythrocyte) 23 pg 25-34 Automated erythrocyte mean corpuscular h emoglobin concentration measurement (mass/volume) 29 g/dL 32-36 Automated erythrocyte distribution width ratio 18. 2 % 10.0- 14.5 Automated blood platelet count (count/volume) 263 10*3/uL 130-400 Automated blood platelet mean volume measurement 11.0 [foz_us] 7.4-10.4 Automated blood neutrophils/100 leukocytes 82 % 42-75 Automated blood lymphocytes/100 leukocytes 13 % 12-44 Blood monocytes/100 leukocytes 5 % 0-12 Automated blood eosinophils/100 leukocytes 1 % 0-10 Automated blood basophils/100 leukocytes 0 % 0-10 Blood neutrophils automated count (number/volume) 5.9 10*3 1.8-7.8 Blood lymphocytes automated count (number/volume) 0.9 10*3 1.0-4.0 Blood monocytes automated count (number/volume) 0. 4 10*3 0.0-1.0 Automated eosinophil count 0.0 10*3/uL 0 .0-0.3 Automated blood basophil count (count/volume) 0.0 10*3/uL 0.0-0.1 Comprehensive metabolic panel - 09/13/19 22:50 Serum or plasma sodium measurement (moles/volume) 139 mmol/L 135-145 Serum or plasma potassium measurement (moles/volume) 4.1 mmol/L 3.6-5.0 Serum or plasma chloride measurement (moles/volume) 107 mmol/L 98-107 Carbon dioxide 23 mmol/L 21-32 Serum or plasma anion gap determination (moles/volume) 9 mmol/L 5-14 Serum or plasma urea nitrogen measurement (mass/volume ) 16 mg/dL 7-18 Serum or plasma creatinine measurement (mass/volume) 0.99 mg/dL 0.60-1.30 Serum or plasma urea nitrogen/creatinine mass ratio 16 NRG Serum or plasma creatinine measurement w ith calculation of estimated glomerular filtration rate 53 NRG Serum or plasma glucose measurement (mass/volume) 112 mg/dL 70-105 Serum or plasma calcium measurement (mass/volume) 9.1 mg/dL 8.5-10.1 Serum or plasma total bilirubin measurement (mass/volu me) 0.2 mg/dL 0.1-1.0 Serum or plasma alkaline phosphatase derrick surement (enzymatic activity/volume) 60 U/L 40-136 Serum or plasma aspartate aminotransfera se measurement (enzymatic activity/volume) 11 U/L 5-34 Serum or plasma alanine aminotransferase measurement (enzymatic activity/volume) < U/L 0-55 Serum or plasma protein measurement (mass/volume) 5.8 g/dL 6.4-8.2 Serum or plasma albumin measurement (mass/volume) 3.2 g/dL 3.2-4.5 CALCIUM CORRECTED 9.7 mg/dL 8.5-10.1 Encounters ACCT No. Visit Date/Time Discharge Status Pt. Type Provider Facility Loc./Unit Complaint [id number] 02/09/2019 14:00:00 02/09/2019 23:59: 59 CLS Outpatient RICKY MCKENNA [facility] [id number] 09/13/2019 19:49:00 019 14:36:00 DIS Inpatient TONG CASTRO DO, [facility] 4TH SYNCOPE,UTI,HYPOTENSION
== END 2019-09-14 14:36 | disposition home or self-care (01) | DRG 315 ==
LOC: ER FS 18:28 → 4TH 19:49 → MERGE 19:49
PROVIDERS: ADMIT Internal Medicine; ATTEND Internal Medicine
DX: I95.9 Hypotension, unspecified (principal); N39.0 Urinary tract infection, site not specified; I11.0 Hypertensive heart disease with heart failure; I50.9 Heart failure, unspecified; F03.90 Unspecified dementia, unspecified severity, without behavioral disturbance, psychotic disturbance, mood disturbance, and anxiety; I25.10 Atherosclerotic heart disease of native coronary artery without angina pectoris; D64.9 Anemia, unspecified; G89.29 Other chronic pain; M54.9 Dorsalgia, unspecified; Z96.649 Presence of unspecified artificial hip joint; H91.90 Unspecified hearing loss, unspecified ear; H91.10 Presbycusis, unspecified ear; K21.9 Gastro-esophageal reflux disease without esophagitis; Z95.1 Presence of aortocoronary bypass graft; Z85.72 Personal history of non-Hodgkin lymphomas
CPT/HCPCS: 36415; 51701; 71045; 80053; 81000; 83605; 83735; 83880; 84484; 85025; 85610; 85730; 87040; 87077; 87088; 87186; 93005; 93041; 93306; 96361; 96365